=== PATIENT | male | born 1995 | race Caucasian/White ===

== ENCOUNTER 2016-11-22 20:30 | Emergency (ER) | payer BC | END 2016-11-22 21:29 | disposition home or self-care (01) | LOC: ER 20:30 | DX: K12.1 Other forms of stomatitis (principal); R51 Headache; R42 Dizziness and giddiness; J45.909 Unspecified asthma, uncomplicated; Z88.1 Allergy status to other antibiotic agents | CPT/HCPCS: 87651 ==